=== PATIENT | male | born 1960 | race Two or more races ===

== ENCOUNTER → 2020-09-14 | Day surgery (SDC) | payer MEDICARE, OTHER ==
[~2020-09-14] MED LIST: ACETAMINOPHEN 500 MG TABLET PO PRN; BALANCED SALT IRRIG SOLN NO.2 500 ML IO ONE; BALANCED SALT IRRIG SOLN NO.2 500 ML ONE; BENZONATATE 100 MG CAPSULE. PO PRN; BRIMONIDINE 0.2% OPHTH SOLUTION 5ML BOTTLE. OS ONE; BUPIV OS ONE; CEFUROXIME OPHTH 4 MG/0.4 ML SYRINGE. OS ONE; CHONDROIT-SOD-HYALURONATE KIT. OS ONE; CINN500C2 PO; DOCU50CA9 PO; ERYTHROMYCIN 0.5% OPHTH OINTMENT 1GM TUBE. OS PRN; GABA-585 PO; GLIP10TA13 PO; HYALURONIDASE OS ONE; IBUPROFEN 200 MG TABLET PO PRN; IPRATRPIUM/ALBUTEROL 0.5/2.5MG 3 ML NEBU. NEB PRN; IV RINGERS SOLUTION,LACTATED 1,000 ML IV SCH; LAMO100T37 PO; LIDO OS ONE; LIDO/EPI IN BSS OPHTH 2.7 ML SYRINGE. OS ONE; LIDOCAINE 2% JELLY 6ML IN APPLICATOR. ONE; MIDAZOLAM HCL PF 2 MG/2 ML VIAL. IV ONE; MIDAZOLAM HCL PF 2 MG/2 ML VIAL. ONE; ONDA4TAB7 PO; ONDANSETRON PF 4 MG/2 ML VIAL. IV PRN; PANT40TA6 PO; PHENYLEPHRINE 10% OPHTH SOLUTION 5ML BOTTLE. OS PRN; PIOG45TA40 PO; POLY17PO5 PO; POVIDONE-IODINE 5% OPHTH SOLUTION 30ML BOTTLE. OS ONE; POVIDONE-IODINE 5% OPHTH SOLUTION 30ML BOTTLE. OS PRN; PROPARACAINE 0.5% OPHTH SOLUTION 15ML BOTTLE. OS ONE; PROPARACAINE 0.5% OPHTH SOLUTION 15ML BOTTLE. OS PRN; PROPOFOL 10,000 MCG/ML (20ML) VIAL IV ONE; SERT100T PO; SITA1TAB11 PO; prednisoLONE ACETATE 1% OPHTH SUSPENSION 5ML BOTTLE. OS ONE
[2020-09-14] MEDS: PHENYLEPHRINE 2.5% OPHTH SOLUTION 2ML BOTTLE. OS SCH ×3 (10:46→11:02)
[2020-09-14] MEDS: KETOROLAC TROMETHAMINE 0.5% OPHTH SOLUTION BOTTLE. OS SCH ×2 (10:46→10:57)
[2020-09-14] MEDS: TROPICAMIDE 1% OPHTH SOLUTION 15ML BOTTLE. OS SCH ×3 (10:46→11:02)
[2020-09-14] MEDS: TOBRAMYCIN 0.3% OPHTH SOLUTION 5ML BOTTLE. OS SCH ×2 (10:47→10:56)
--- NOTE | 2020-09-14 12:43 | PDOC4 ---
SURGEON: Akhil Lugo MD Date of Procedure: 09/14/20 PREOP Diagnosis Visually significant cataract: Left Eye OS POSTOP Diagnosis Same PROCEDURE: Phaco w/ posterior chamber IOL: Left Eye OS ANESTHESIA x María/retro bulbar block with 2% Lidocaine with 0.5% Marcaine DESCRIPTION OF PROCEDURE The risks, benefits, and alternatives were discussed with the patient who elected to proceed. Informed consent was obtained in writing and placed in the chart After anesthetizing the eye topically, the patient was taken to the operating room, and the operative eye was prepped and draped in the usual sterile fashion for ocular surgery. A wire lid speculum was placed. A 1-mm clear corneal paracentesis incision was created with the side-port blade at a position three o'clock hours clockwise from the temporal cornea. Then, 1% non-preserved Lidocaine with epinephrine was injected into the anterior chamber followed by viscoelastic. Cotton-tipped applicators were used to stabilize the globe, and a 2.4 mm keratome was used to create a self-sealing incision in clear cornea at the temporal limbus. The Utrata forceps were used to create a continuous curvilinear capsulorrhexis. Balanced saline solution was injected via cannula beneath the capsulorrhexis edge to hydrodissect the lens nucleus and cortex from the lens capsule. The phacoemulsification handpiece and a chopping instrument were then used to remove the lens nucleus. The remaining epinuclear material and cortex were removed with the irrigation/aspiration handpiece. Viscoelastic was used to re-inflate the lens capsule, and the intraocular lens was injected directly into the capsular bag. The corneal wound edges were hydrated with balanced salt solution on a cannula and the irrigation/aspiration handpiece was used to extract the remaining viscoelastic. Cefuroxime 0.1mg/ml / Vigamox 0.5% was injected into the anterior chamber intracamerally. The wounds were inspected and found to be watertight at an appropriate intraocular pressure. Topical antibiotic drops were placed on the corneal surface. LRI: No If Yes, Number [] [place] [] Length [] degrees Depth [] microns Incision [place]: 180 Toric Lens [place] [] Patch/shield with Maxitrol/Tobradex/Erythromycin ointment: Yes No Co-managed patients/postop examination stable for co-management with referring doctor. AKHIL LUGO MD Sep 14, 2020 12:43
[2020-09-14 13:14] VITALS: BP 109/79
== END | disposition home or self-care (01) ==
LOC: SURG 10:17
PROVIDERS: ATTEND Ophthalmology
DX: E11.36 Type 2 diabetes mellitus with diabetic cataract (principal); H25.12 Age-related nuclear cataract, left eye; F32.9 Major depressive disorder, single episode, unspecified; F41.9 Anxiety disorder, unspecified; G40.909 Epilepsy, unspecified, not intractable, without status epilepticus; Z79.899 Other long term (current) drug therapy; Z98.890 Other specified postprocedural states
CPT/HCPCS: 66984; J2704; V2632; J2250

== ENCOUNTER → 2020-10-05 | Day surgery (SDC) | payer MEDICARE, OTHER ==
[~2020-10-05] MED LIST changes: -BALANCED SALT IRRIG SOLN NO.2 500 ML ONE; +BRIMONIDINE 0.2% OPHTH SOLUTION 5ML BOTTLE. OD ONE; -BRIMONIDINE 0.2% OPHTH SOLUTION 5ML BOTTLE. OS ONE; +BUPIV OD ONE; -BUPIV OS ONE; +CEFUROXIME OPHTH 4 MG/0.4 ML SYRINGE. OD ONE; -CEFUROXIME OPHTH 4 MG/0.4 ML SYRINGE. OS ONE; +CHONDROIT-SOD-HYALURONATE KIT. OD ONE; -CHONDROIT-SOD-HYALURONATE KIT. OS ONE; +ERYTHROMYCIN 0.5% OPHTH OINTMENT 1GM TUBE. OD ONE; -ERYTHROMYCIN 0.5% OPHTH OINTMENT 1GM TUBE. OS PRN; +HYALURONIDASE OD ONE; -HYALURONIDASE OS ONE; +LIDO OD ONE; -LIDO OS ONE; +LIDO/EPI IN BSS OPHTH 2.7 ML SYRINGE. OD ONE; -LIDO/EPI IN BSS OPHTH 2.7 ML SYRINGE. OS ONE; -LIDOCAINE 2% JELLY 6ML IN APPLICATOR. ONE; -MIDAZOLAM HCL PF 2 MG/2 ML VIAL. ONE; +PHENYLEPHRINE 10% OPHTH SOLUTION 5ML BOTTLE. OD PRN; -PHENYLEPHRINE 10% OPHTH SOLUTION 5ML BOTTLE. OS PRN; +POVIDONE-IODINE 5% OPHTH SOLUTION 30ML BOTTLE. OD ONE; +POVIDONE-IODINE 5% OPHTH SOLUTION 30ML BOTTLE. OD PRN; -POVIDONE-IODINE 5% OPHTH SOLUTION 30ML BOTTLE. OS ONE; -POVIDONE-IODINE 5% OPHTH SOLUTION 30ML BOTTLE. OS PRN; +PROPARACAINE 0.5% OPHTH SOLUTION 15ML BOTTLE. OD ONE; +PROPARACAINE 0.5% OPHTH SOLUTION 15ML BOTTLE. OD PRN; -PROPARACAINE 0.5% OPHTH SOLUTION 15ML BOTTLE. OS ONE; -PROPARACAINE 0.5% OPHTH SOLUTION 15ML BOTTLE. OS PRN; +prednisoLONE ACETATE 1% OPHTH SUSPENSION 5ML BOTTLE. OD ONE; -prednisoLONE ACETATE 1% OPHTH SUSPENSION 5ML BOTTLE. OS ONE
[2020-10-05] MEDS: PHENYLEPHRINE 2.5% OPHTH SOLUTION 2ML BOTTLE. OD SCH ×3 (10:13→10:25)
[2020-10-05] MEDS: TROPICAMIDE 1% OPHTH SOLUTION 15ML BOTTLE. OD SCH ×3 (10:13→10:25)
[2020-10-05] MEDS: KETOROLAC TROMETHAMINE 0.5% OPHTH SOLUTION BOTTLE. OD SCH ×2 (10:13→10:21)
[2020-10-05] MEDS: TOBRAMYCIN 0.3% OPHTH SOLUTION 5ML BOTTLE. OD SCH ×2 (10:13→10:21)
--- NOTE | 2020-10-05 12:38 | PDOC4 ---
SURGEON: Akhil Lugo MD Date of Procedure: 10/05/20 PREOP Diagnosis Visually significant cataract: Right Eye OD PROCEDURE: Phaco w/ posterior chamber IOL: Right Eye OD ANESTHESIA Deep forniceal periocular 2% Lidocaine jelly x María/retro bulbar block with 2% Lidocaine with 0.5% Marcaine DESCRIPTION OF PROCEDURE The risks, benefits, and alternatives were discussed with the patient who elected to proceed. Informed consent was obtained in writing and placed in the chart After anesthetizing the eye topically, the patient was taken to the operating room, and the operative eye was prepped and draped in the usual sterile fashion for ocular surgery. A wire lid speculum was placed. A 1-mm clear corneal paracentesis incision was created with the side-port blade at a position three o'clock hours clockwise from the temporal cornea. Then, 1% non-preserved Lidocaine with epinephrine was injected into the anterior chamber followed by viscoelastic. Cotton-tipped applicators were used to stabilize the globe, and a 2.4 mm keratome was used to create a self-sealing incision in clear cornea at the temporal limbus. The Utrata forceps were used to create a continuous curvilinear capsulorrhexis. Balanced saline solution was injected via cannula beneath the capsulorrhexis edge to hydrodissect the lens nucleus and cortex from the lens capsule. The phacoemulsification handpiece and a chopping instrument were then used to remove the lens nucleus. The remaining epinuclear material and cortex were removed with the irrigation/aspiration handpiece. Viscoelastic was used to re-inflate the lens capsule, and the intraocular lens was injected directly into the capsular bag. The corneal wound edges were hydrated with balanced salt solution on a cannula and the irrigation/aspiration handpiece was used to extract the remaining viscoelastic. Cefuroxime 0.1mg/ml / Vigamox 0.5% was injected into the anterior chamber intracamerally. The wounds were inspected and found to be watertight at an appropriate intraocular pressure. Topical antibiotic drops were placed on the corneal surface. LRI: No If Yes, Number [] [place] [] Length [] degrees Depth [] microns Incision [place]: 180 Toric Lens [place] [] Patch/shield with Maxitrol/Tobradex/Erythromycin ointment: Yes No Co-managed patients/postop examination stable for co-management with referring doctor. EBL EBL: None SPECIMANS COLLECTED Specimens Collected: None AKHIL LUGO MD Oct 05, 2020 12:38
[2020-10-05 13:08] VITALS: BP 124/86
== END | disposition home or self-care (01) ==
LOC: SURG 09:55
PROVIDERS: ATTEND Ophthalmology
DX: E11.36 Type 2 diabetes mellitus with diabetic cataract (principal); H25.11 Age-related nuclear cataract, right eye; F41.9 Anxiety disorder, unspecified; F32.9 Major depressive disorder, single episode, unspecified; G40.909 Epilepsy, unspecified, not intractable, without status epilepticus; K21.9 Gastro-esophageal reflux disease without esophagitis; Z79.899 Other long term (current) drug therapy
CPT/HCPCS: 66984; 82947; J2704; V2632

== ENCOUNTER 2021-06-19 15:33 | Emergency (ER) | payer MEDICARE, OTHER ==
[~2021-06-19] VITALS: Ht 167.6 cm; Wt 59.0 kg
[~2021-06-19 15:33] MED LIST changes: -ACETAMINOPHEN 500 MG TABLET PO PRN; -BALANCED SALT IRRIG SOLN NO.2 500 ML IO ONE; -BENZONATATE 100 MG CAPSULE. PO PRN; -BRIMONIDINE 0.2% OPHTH SOLUTION 5ML BOTTLE. OD ONE; -BUPIV OD ONE; -CEFUROXIME OPHTH 4 MG/0.4 ML SYRINGE. OD ONE; -CHONDROIT-SOD-HYALURONATE KIT. OD ONE; -ERYTHROMYCIN 0.5% OPHTH OINTMENT 1GM TUBE. OD ONE; -HYALURONIDASE OD ONE; -IBUPROFEN 200 MG TABLET PO PRN; -IPRATRPIUM/ALBUTEROL 0.5/2.5MG 3 ML NEBU. NEB PRN; -IV RINGERS SOLUTION,LACTATED 1,000 ML IV SCH; -LIDO OD ONE; -LIDO/EPI IN BSS OPHTH 2.7 ML SYRINGE. OD ONE; -MIDAZOLAM HCL PF 2 MG/2 ML VIAL. IV ONE; -ONDANSETRON PF 4 MG/2 ML VIAL. IV PRN; -PHENYLEPHRINE 10% OPHTH SOLUTION 5ML BOTTLE. OD PRN; -POVIDONE-IODINE 5% OPHTH SOLUTION 30ML BOTTLE. OD ONE; -POVIDONE-IODINE 5% OPHTH SOLUTION 30ML BOTTLE. OD PRN; -PROPARACAINE 0.5% OPHTH SOLUTION 15ML BOTTLE. OD ONE; -PROPARACAINE 0.5% OPHTH SOLUTION 15ML BOTTLE. OD PRN; -PROPOFOL 10,000 MCG/ML (20ML) VIAL IV ONE; -prednisoLONE ACETATE 1% OPHTH SUSPENSION 5ML BOTTLE. OD ONE
--- NOTE | 2021-06-19 17:05 | EKG ---
[address] [address] Test Date: 2021-06-19 Test Time: 16:59:40 Pat Name: RADHA GREEN Department: Room: Gender: M Corrective Therapy Aide Teacher: ANURAG : 1960 Requested By: MORGAN DODSON Order Number: [id number] Reading MD: Italo Lang Measurements Intervals [place] Rate: 89 P: 16 AR: 126 QRS: 33 QRSD: 88 T: 22 QT: 346 QTc: 427 Interpretive Statements SINUS RHYTHM Electronically Signed On 06-23-2021 16:49:44 [employer]IST by Italo Lang
--- NOTE | 2021-06-19 17:26 | PHYS DOC ---
Past History Additional Past Medical Histor: Cerebral palsy (BRANDYN ROMAN APRN) Past Surgical History: Cholecystectomy (BRANDYN ROMAN APRN) Alcohol Use: None (BRANDYN ROMAN APRN) Adult General Chief Complaint Chief Complaint: SEIZURE HPI HPI 61-year-old male presents to ED via ambulance with a chief complaint of seizure at his primary care doctor's office just prior to arrival. He was being treated there for a a sinus infection and is currently on antibiotics. Patient's sister, who is historian in ED, states that she witnessed this seizure in the office lasting approximately 45 minutes. She states that patient has been whispering when talking recently and is acting how he normally acts after one of his episodes. The seizure consisted of patient tightening up his limbs. She says that he has had 5 seizures in 5 weeks and is unsure of his seizure medication. The patient is developmentally delayed. Patient's sister called a family member who listed off patient's medications and he is not on seizure medications presently. The patient received Versed 10 mg IM in route per EMS. He is intermittently snoring and opening his eyes. He will follow minimal commands and does track with his eyes. He is maintaining airway and secretions and vitals are stable. (BRANDYN ROMAN APRN) Review of Systems Review of Systems Constitutional: Denies fever or chills Eyes: Denies discharge or redness HENT: Denies sore throat or head injury Respiratory: Denies cough or shortness of breath Cardiovascular: Denies chest pain Abdomen: Denies abdominal discomfort Neurologic: See HPI Psychiatric: See HPI All other systems were reviewed and found to be within normal limits, except as documented in this note. (BRANDYN ROMAN APRN) Allergies Allergies Allergies Coded Allergies Type Severity Reaction Last Updated Verified Iodinated Contrast Media Allergy Unknown 06/19/21 Yes (BRANDYN ROMAN APRN) Physical Exam Physical Exam Constitutional: Well nourished, no acute distress, non-verbal [] HENT: Normocephalic, atraumatic, bilateral external ears normal, oropharynx moist, no oral exudates, nose normal. [] Eyes: PERRL, EOMI, conjunctiva normal, no discharge. [] Neck: Normal range of motion, no tenderness, supple, no stridor. [] Cardiovascular: Heart rate regular rhythm, no murmur [] Lungs & Thorax: Bilateral breath sounds clear to auscultation [] Abdomen: Bowel sounds normal, soft, no tenderness, no masses, no pulsatile masses. [] Skin: Warm, dry, no erythema, no rash. [] Back: No tenderness. [] Extremities: No tenderness, no cyanosis, no clubbing, no edema, LUE contracted to chest. Neurologic: Tracks with bilateral eyes, non-verbal, PERRL Psychologic: Developmentally delayed, non-verbal (BRANDYN ROMAN APRN) Current Patient Data Vital Signs Vital Signs Date Time Temp Pulse Resp B/P (MAP) Pulse Ox O2 Delivery O2 Flow Rate FiO2 06/19/21 15:40 98.1 103 16 126/67 (86) 99 Room Air (BRANDYN ROMAN APRN) EKG EKG Normal sinus rhythm with a rate of 89, QTc is 427, no STEMI. Read by Dr. Dodson at 1700.[] (BRANDYN ROMAN APRN) Radiology/Procedures Radiology/Procedures IMAGING REPORT Signed PATIENT: RADHA GREEN ACCOUNT: [id number] : 1960 LOCATION: ER AGE: 61 SEX: M EXAM STATUS: REG ER ORD. PHYSICIAN: MORGAN DODSON DO REASON: MULTIPLE SEIZURES, HX CYST ON BASE OF BRAIN/SKULL, CEREBRAL PALSY PROCEDURE: CT HEAD WO CONTRAST CT brain without contrast. HISTORY: Seizures, cerebral palsy CT scan the brain was done without contrast. Sinuses are clear. There is no skull fracture. 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 There is no intracranial hemorrhage or subdural hematoma. There is no mass effect or shift of the midline. Lateral ventricles are normal in size. An acute CVA is not identified. There is a prior MRI of the brain showing similar features without significant change. IMPRESSION: 1. 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 2. No intracranial hemorrhage or other acute finding. PQRS Compliance Statement: One or more of the following individualized dose reduction techniques were utilized for this examination: 1. Automated exposure control 2. Adjustment of the mA and/or kV according to patient size 3. Use of iterative reconstruction technique Electronically signed by: Jose Miguel Barry MD (06/19/2021 6:00 PM) [facility] DICTATED AND SIGNED BY: JOSE MIGUEL BARRY MD DATE: 06/19/211756[] (BRANDYN ROMAN APRN) Heart Score C/O Chest Pain: N/A Risk Factors: Risk Factors: DM, Current or recent (<one month) smoker, HTN, HLP, family history of CAD, obesity. Risk Scores: Risk Factors: DM, Current or recent (<one month) smoker, HTN, HLP, family history of CAD, obesity. (BRANDYN ROMAN APRN) Course & Med Decision Making Course & Med Decision Making Patient is a 61-year-old male who presents to the ED via EMS from his primary care doctor's office today after having a witnessed seizure lasting approximately 45 minutes per patient's sister. The patient is nonverbal and is also developmentally delayed and has a history of Dandy-Walker syndrome.. He is not taking seizure medications, but his sister states that he has a history of seizures. She states that he has had 5 seizures in the last 5 weeks. He was b digna seen today by his PCP for a current sinus infection. He is snoring and awake intermittently, and was given Versed 10 mg IM in route to ED. Blood work, UA, UDS, EKG, and CT head ordered. 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 There is no intracranial hemorrhage or subdural hematoma. There is no mass effect or shift of the midline, and no skull fracture. Lateral ventricles are normal in size. An acute CVA is not identified. There is a prior MRI of the brain showing similar features without significant change. EKG was normal sinus rhythm and lab work was unremarkable. Patient was sitting up in bed and smiling with eyes open during reassessment. He is speaking in a whisper voice as he has been doing lately per his sister. Discussed results with family member and all questions answered.. Patient's sister states that she does not want to follow-up with neurology, and would like to follow-up with a different neurologist. Discussed following up with Dr. Bah and his primary care tomorrow for continued care. (BRANDYN ROMAN APRN) Dragon Disclaimer Dragon Disclaimer This electronic medical record was generated, in whole or in part, using a voice recognition dictation system. (BRANDYN ROMAN APRN) Attending Co-Sign The patient was seen and interviewed as well as examined at the bedside. The chart was reviewed. The case was discussed. Agree with the plan of care. (MORGAN DODSON DO) Departure Departure: Impression: Primary Impression: Pseudoseizures Disposition: HOME / SELF CARE / HOMELESS Condition: IMPROVED Referrals: KAREN MUELLER (PCP) Patient Instructions: Seizure, Adult Additional Instructions: You were seen in the emergency department today for seizure-like activity. It is unclear what caused her seizure. Your blood work and lab work were all within normal limits. Your head CT showed no bleeding, bruising, or fracture. This image showed no significant changes from your last MRI. Please follow-up with your PCP and Dr. Bah, who is a neurologist at [address] [place] [address]; [phone] for continued care. Please do not swim, drive, or participate in any dangerous activities until follow-up. Please return to the ED if you develop increased seizures, more than 1 seizure in a row without returning to normal, seizure lasting longer than 5 minutes, or any other new or concerning symptoms. BRANDYN ROMAN APRN Jun 19, 2021 17:26 MORGAN DODSON DO Jun 21, 2021 07:13
--- NOTE | 2021-06-19 18:03 | RAD ---
CT brain without contrast. HISTORY: Seizures, cerebral palsy CT scan the brain was done without contrast. Sinuses are clear. There is no skull fracture. 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 There is no intracranial hemorrhage or subdural hematoma. There is no mass effect or shift of the midline. Lateral ventricles are normal in size. An acute CVA is not identified. There is a prior MRI of the br ain showing similar features without significant change. IMPRESSION: 1. 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 2. No intracranial hemorrhage or other acute finding. PQRS Compliance Statement: One or more of the following individualized dose reduction techniques were utilized for this examinat ion: 1. Automated exposure control 2. Adjustment of the mA and/or kV according to patient size 3. Use of iterative reconstruction technique Electronically signed by: Jose Miguel Barry MD (06/19/2021 6:00 PM) [facility]
[2021-06-19 18:06] LABS: BASO % 0 % (0-3); EOS % 0 % (0-3); HEMATOCRIT 36.3 % (39.0-53.0); LYMPH # 1.2 x10^3/uL (1.0-4.8); LYMPH % 11 % (24-48); MEAN CORPUSCULAR HEMOGLOBIN 29 pg (25-35); MEAN CORPUSCULAR HGB CONC 33 g/dL (31-37); MEAN CORPUSCULAR VOLUME 88 fL (79-100); MONO # 0.5 x10^3/uL (0.0-1.1); MONO % 5 % (0-9); NEUT # 9.2 x10^3uL (1.8-7.7); NEUT % 84 % (31-73); PLATELET COUNT 185 x10^3/uL (140-400); RED BLOOD COUNT 4.14 x10^6/uL (4.30-5.70); RED CELL DISTRIBUTION WIDTH 15.1 % (11.5-14.5)
[2021-06-19 18:08] LABS: BACTERIA,URINE 0 /HPF (0-FEW); BILIRUBIN,URINE NEG (NEG); CLARITY,URINE CLEAR; COLOR,URINE YELLOW; GLUCOSE,URINE NEG (NEG); NITRITE,URINE NEG (NEG); RBC,URINE 0 /HPF (0-2); UROBILINOGEN,URINE 0.2 mg/dL (0.2 mg/dL); WBC,URINE 0 /HPF (0-4)
[2021-06-19 18:13] LABS: BARBITURATES NEG (NEG); BENZODIAZEPINES POS (NEG); CANNABINOIDS NEG (NEG); COCAINE NEG (NEG); METHADONE NEG (NEG); OPIATES NEG (NEG); PHENCYCLIDINE NEG (NEG)
[2021-06-19 18:15] LABS: CALCIUM 8.9 mg/dL (8.5-10.1); CREATININE 0.9 mg/dL (0.7-1.3); GFR 86.4; POTASSIUM 4.1 mmol/L (3.5-5.1)
[2021-06-19 18:16] LABS: AMPHETAMINE/METHAMPHETAMINE NEG (NEG)
[2021-06-19 18:21] LABS: ALBUMIN/GLOBULIN RATIO 1.1 (1.0-1.7); TOTAL BILIRUBIN 0.2 mg/dL (0.2-1.0); TOTAL PROTEIN 7.7 g/dL (6.4-8.2)
[2021-06-19 19:36] VITALS: BP 144/78
== END 2021-06-19 19:37 | disposition home or self-care (01) ==
LOC: ER 15:33
DX: R56.9 Unspecified convulsions (principal); R62.50 Unspecified lack of expected normal physiological development in childhood; G80.9 Cerebral palsy, unspecified; Z91.041 Radiographic dye allergy status
CPT/HCPCS: 36415; 70450; 80053; 80307; 81001; 83605; 85025; 93005; 99285